=== PATIENT | female | born 1940 | race Caucasian/White ===

== ENCOUNTER 2023-12-10 12:37 | Outpatient (AMB) | payer MEDICARE, SELFPAY ==
--- NOTE | 2023-12-10 13:17 | A.OFFVIS_ITS ---
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 States her left hand is worse, has stiffness in all her joint. States she use a glove at night that helps with her cold hands. She has tingling and numbness mainly at night time. Denies recent injury, surgery or injection. At times her hands itch very randomly. She is currently on HD. 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 She complains of numbness and tingling intermittent, but daily, primarily at night. Her numbness is primarily in the thumb, index, and middle fingers bilaterally. She denies any small finger numbness. She complains of pain in her hands as well. She denies any prior treatment She has end-stage renal disease, and is on Dialysis. She has CAD and a hx of a coronary bypass with graft. She says she was recently hospitalized for the flu, which she says damaged her heart . [facility] Medical History (Updated 12/10/23 @ 13:55 by Seth Sahni) Aneurysm FH: CABG (coronary artery bypass surgery) Surgical History (Updated 12/10/23 @ 13:36 by FREDO Rosales) History of cranial surgery Social History (Updated 12/10/23 @ 13:37 by FREDO Rosales) Current occupational status: retired Current occupation: rt hand Review of Systems Const All systems reviewed & are unremarkable except as noted in HPI and below Physical Exam Vital Signs: BMI result Body Mass Index 30.6 Const General: cooperative, healthy appearing and no acute distress Orientation/consciousness: patient oriented x3 HEENT Head: Yes normocephalic and Yes atraumatic Eyes EOM: EOMs intact bilaterally Resp Effort & Inspection: normal respiratory effort and able to speak in complete sentences Cardio Jugular venous distension: no JVD Skin General skin exam: turgor normal Rashes: no rashes Neuro General: patient oriented x3 Extrem Other: Evaluation of Bilateral Upper Extremity: The patient is alert, oriented, and in no acute distress Neuro: Mild numbness in the median nerve distribution bilaterally today in clinic. normal sensation to the ulnar nerve distribution. No thenar or intrinsic wasting Good APB muscle belly firing and good finger cross Vascular: Cap refill brisk ROM: She can make a fist and extend all her digits No locking or catching Skin: No lacerations or abrasions. General: No Ecchymosis. No Erythema or evidence of infection. Radiographs: 3 views of her left hand were taken and viewed by me today in clinic. They show no fractures, dislocations. Only minimal evidence of arthritic changes. She has some wrist chondrocalcinosis. Psych Appearance: grossly normal Affect: normal affect Attitude: cooperative Assessment & Plan Assessment & Plan (1) Bilateral hand numbness: Code(s): R20.0 - Anesthesia of skin Plan Assessment & Plan: 1. Bilateral hand numbness In the median nerve distribution Symptoms intermittent, but daily, worse at night I educated her about carpal & cubital tunnel syndrome I ordered a NCS to assess for peripheral nerve compression She will follow up when completed for review. Scribed for Tere Marcelo MD by Seth Sahni, medical technician assistant, on 12/10/23 at 1:55 PM, EST. Orders: Orders XR hand LT min 3V Today M79.642 - Pain in left hand NE nerve conduction velocity Today R20.0 - Anesthesia of skin, R20.2 - Paresthesia of skin Coding Level of Care Code New Pt Level 3 (74672) Diagnoses Bilateral hand numbness R20.0
[2023-12-10 13:34] VITALS: BMI 30.6
== END 2023-12-10 14:04 | disposition home or self-care (01) ==
PROVIDERS: PCP Physician Assistant; Visit Provider Orthopaedic Surgery
DX: R20.0 Anesthesia of skin (principal); M25.641 Stiffness of right hand, not elsewhere classified; M25.642 Stiffness of left hand, not elsewhere classified
CPT/HCPCS: 99203

== ENCOUNTER 2023-12-10 12:37 | Outpatient (REF) | payer MEDICARE, SELFPAY ==
--- NOTE | ~2023-12-10 | XR_ITS ---
EXAMINATION: XR HAND, LEFT CLINICAL INFORMATION: Pain in left hand. COMPARISON: None available. TECHNIQUE: PA, lateral, and oblique views of the left hand. FINDINGS: The bones are diffusely demineralized. Moderate degenerative changes in the first carpometacarpal joint with joint space narrowing and hypertrophic change. Narrowing of the radiocarpal space. Faint calcifications in the soft tissues distal to the radius and ulna. Corticated cystic/erosive change along the radial aspect of the second MCP joint. Extensive vascular calcifications. Moderate degenerative changes in the first MCP and IP joints. XR/XR hand LT min 3V IMPRESSION: 1. Moderate degenerative changes in the first carpometacarpal joint. 2. Corticated cystic/erosive change along the radial aspect of the second MCP joint. 3. Extensive vascular calcifications. 4. Recommend follow-up imaging in 10-14 days if fracture is suspected.
== END 2023-12-10 12:38 | disposition home or self-care (01) ==
LOC: HO.HOSX 12:37
PROVIDERS: PCP Physician Assistant; Visit Provider Orthopaedic Surgery
DX: M25.642 Stiffness of left hand, not elsewhere classified (principal); M25.641 Stiffness of right hand, not elsewhere classified; R20.0 Anesthesia of skin; R20.2 Paresthesia of skin
CPT/HCPCS: 73130; 99202

== ENCOUNTER 2024-01-02 13:36 | Outpatient (REF) | payer MEDICARE, SELFPAY ==
--- NOTE | 2024-01-02 | EMG_ITS ---
Chief complaint: Bilateral hand numbness History of ESRD on HD, AV fistula on right forearm Reason for referral: Evaluate for Carpal Tunnel Syndrome Referred by: Dr. Marcelo Procedure done: Left upper extremity NCS/EMG Precautions and/or limitations: Deferred testing right upper extremity due to AV fistula The limb temperature was monitored continuously and remained between 32-36 degrees C during the performance of the NCS. Ulnar motor NCS was performed with moderate elbow flexion between 70-90 degrees, with across-elbow distance of 10 cm. Nerve Conduction Studies Anti Sensory Summary Table ?Stim Site NR Onset (ms) Norm Onset (ms) Peak (ms) Norm Peak (ms) O-P Amp (?V) Norm O-P Amp Site1 Site2 Delta-0 (ms) Dist (cm) Reji (m/s) Norm Reji (m/s) Left Median Anti Sensory (2nd Digit) Wrist NR <3.6 >10 Wrist 2nd Digit 14.0 Left Radial Anti Sensory (Thumb) Forearm ? 2.3 2.7 <3.1 7.5 Forearm Thumb 2.3 0.0 Left Ulnar Anti Sensory (5th Digit) Wrist ? 3.2 4.2 <3.7 2.5 >15.0 Wrist 5th Digit 3.2 14.0 44 Motor Summary Table ?Stim Site NR Onset (ms) Norm Onset (ms) O-P Amp (mV) Norm O-P Amp iAmp (mV) Amp (1st) (%) Site1 Site2 Delta-0 (ms) Dist (cm) Reji (m/s) Norm Reji (m/s) Left Median Motor (Abd Poll Brev) Wrist NR <3.9 >4.5 Elbow Wrist 0.0 >45 Elbow NR Left Ulnar Motor (Abd Dig Minimi) Wrist ? 3.4 <3.0 6.4 >5 7.7 100.0 B Elbow Wrist 3.9 19.0 49 >45 B Elbow ? 7.3 5.6 7.0 87.5 A Elbow B Elbow 2.1 10.0 48 >45 A Elbow ? 9.4 5.3 6.6 82.8 EMG ?Side Muscle Nerve Root Ins Act Fibs Psw Amp Dur Poly Recrt Int Pat Comment Left 1stDorInt Ulnar C8-T1 Nml Nml Nml Nml Nml 0 Nml Complete Left FlexCarRad Median C6-7 Nml Nml Nml Nml Nml 0 Nml Complete Left Biceps Musculocut C5-6 Nml Nml Nml Nml Nml 0 Nml Complete Left Triceps Radial C6-7-8 Nml Nml Nml Nml Nml 0 Nml Complete Left Deltoid Axillary C5-6 Nml Nml Nml Nml Nml 0 Nml Complete Left FlexCarpiUln Ulnar C8,T1 Nml Nml Nml Nml Nml 0 Nml Complete FINDINGS: Left median motor nerve showed absent response. Left ulnar motor nerve showed prolonged distal latency, normal amplitude and normal conduction velocity. Left median sensory nerve showed absent response. Left ulnar sensory nerve showed prolonged peak latency and small amplitude. All other nerves tested were within normal. Concentric needle EMG was performed in selected muscles of the left upper extremity. Study did not reveal signs of electric abnormalities as shown in the table below. IMPRESSION: 1. This is an abnormal study. 2. 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 3. There is electrodiagnostic evidence for left ulnar neuropathy, poorly localizable but suspect across the elbow. 4. There is no electrodiagnostic evidence for brachial plexopathy, or cervical radiculopathy. Thank you for your kind referral. Haydee Neumann MD, [place] Board Certified, [place] [employer] and [employer] (ABPMR) Board Certified, [place] [employer] Electro[employer]ostic [employer] (ABEM) [place] [id number] [facility]
== END 2024-01-02 13:37 | disposition home or self-care (01) ==
LOC: HO.NEURO 13:36
PROVIDERS: Visit Provider Orthopaedic Surgery
DX: R20.0 Anesthesia of skin (principal); R20.2 Paresthesia of skin
CPT/HCPCS: 95886; 95909

== ENCOUNTER → 2024-01-02 14:24 | Outpatient (BNV) | payer MEDICARE, SELFPAY | PROVIDERS: Visit Provider Physical Medicine & Rehabilitation | DX: G56.02 Carpal tunnel syndrome, left upper limb (principal); G56.12 Other lesions of median nerve, left upper limb; G56.22 Lesion of ulnar nerve, left upper limb | CPT/HCPCS: 95886; 95909 ==